=== PATIENT | female | born 1955 | race Caucasian/White ===

== ENCOUNTER → 2016-08-10 | Outpatient (CLI) | payer BC ==
[2016-08-10 18:18] LABS: HEMOGLOBIN 12.3 gm/dl (12.3-15.3); RED BLOOD COUNT 4.31 M/UL (4.00-5.10); WHITE BLOOD COUNT 9.5 K/UL (4.5-11.0)
[2016-08-10 18:39] LABS: BUN/CREATININE RATIO 13 (0-10)
== END ==
LOC: LAB 17:29
PROVIDERS: Nurse Practitioner
DX: M25.50 Pain in unspecified joint (principal); M13.0 Polyarthritis, unspecified; L93.0 Discoid lupus erythematosus
CPT/HCPCS: 36415; 80053; 82784; 84550; 85025; 86038; 86039; 86140; 86160; 86225; 86226; 86235; 86431

== ENCOUNTER → 2016-11-14 | Outpatient (CLI) | payer BC ==
[2016-11-14 17:49] LABS: HEMOGLOBIN 12.2 gm/dl (12.3-15.3); RED BLOOD COUNT 4.23 M/UL (4.00-5.10); WHITE BLOOD COUNT 6.7 K/UL (4.5-11.0)
[2016-11-14 18:06] LABS: BUN/CREATININE RATIO 15 (0-10)
== END ==
LOC: LAB 17:10
PROVIDERS: Nurse Practitioner
DX: M19.90 Unspecified osteoarthritis, unspecified site (principal); G89.29 Other chronic pain
CPT/HCPCS: 36415; 80053; 82784; 84550; 85025; 86038; 86039; 86140; 86160; 86200; 86225; 86226; 86235; 86431

== ENCOUNTER → 2021-06-09 | Outpatient (CLI) | payer MEDICARE, OTHER ==
[~2021-06-09] MED LIST: AMITRIPTYLINE H25 MG PO; CEFDINIR300 MG PO; CYMBALTA60 MG PO; FOLIC ACID 1 MG1 MG PO; HYDROCODON-ACE1 EAC2 PO; OMEPRAZOLE20 MG PO; PILOCARPINE HCL5 MG PO; PLAQUENIL200 MG PO; PROPRANOLOL HCL10 MG PO; SUMATRIPTAN SU100 MG PO; SYNTHROID150 MCG PO; ZOFRAN ODT 4 MG4 MG PO
[2021-06-09 13:18] LABS: HEMOGLOBIN 12.5 gm/dl (12.3-15.3); RED BLOOD COUNT 4.47 M/UL (4.00-5.10); WHITE BLOOD COUNT 8.2 K/UL (4.5-11.0)
== END ==
LOC: OPSV2 12:28
PROVIDERS: Obstetrics & Gynecology
DX: Z01.812 Encounter for preprocedural laboratory examination (principal); D25.9 Leiomyoma of uterus, unspecified; Z88.2 Allergy status to sulfonamides
CPT/HCPCS: 36415; 81001; 85025

== ENCOUNTER → 2021-06-17 | Day surgery (SDC) | payer MEDICARE, OTHER ==
[~2021-06-17] VITALS: Ht 157.5 cm; Wt 88.9 kg
[~2021-06-17] MED LIST changes: +AYGESTIN5 MG PO; +NAPROSYN500 MG PO
== END | disposition home or self-care (01) ==
LOC: OR 05:24
DX: C54.1 Malignant neoplasm of endometrium (principal); N95.0 Postmenopausal bleeding; J44.9 Chronic obstructive pulmonary disease, unspecified; M19.90 Unspecified osteoarthritis, unspecified site; E03.9 Hypothyroidism, unspecified; F41.9 Anxiety disorder, unspecified; F32.A Depression, unspecified; F17.210 Nicotine dependence, cigarettes, uncomplicated; Z98.51 Tubal ligation status; Z88.2 Allergy status to sulfonamides; Z91.040 Latex allergy status; Z79.899 Other long term (current) drug therapy
CPT/HCPCS: J0690; J1100; J1580; J1885; J2001; J2405; J2704; J3010